=== PATIENT | female | born 1995 | race Two or more races ===

== ENCOUNTER 2019-07-28 11:04 | Emergency (ER) | payer BC ==
[~2019-07-28] VITALS: Ht 160 cm; Wt 59.0 kg
[2019-07-28] MEDS ORDERED: NKM (11:24)
[2019-07-28 11:28] VITALS: BP 107/67
--- NOTE | 2019-07-28 11:30 | NUR ---
ED Nurse Note: A/OX4. PT REPORTS OF HAVING TOOTHACHE SINCE YESTERDAY AND PAIN REMAINS AFTER TAKING IBUPROFEN AND PENDING APPT WITH DENTIST. NAD NOTED.
[2019-07-28] MEDS ORDERED: Ketorolac 30mg Inj IM ONE (12:15)
--- NOTE | 2019-07-28 12:17 | Emergency Room Report ---
History of Present Illness General Chief Complaint: Toothache Source: Patient Present Illness HPI 23-year-old female with no symptom past medical history here complaining of toothache that started 2 days ago. Reports that she is not from [place] and a month ago she was in the process of extraction of her wisdom teeth however had to come to [place] due to dizziness. Rating the pain 10 out of 10 reporting has been taking ibuprofen with minimal relief. Denies fall or injury. No signs of infection noted. Denies fever and chills, and other associated symptoms. Denies ear pain, tingling or numbness, headache and dizziness Allergies: Uncoded Allergies: NAPROXYN (Allergy, Unknown, 07/28/19) Patient History Past Medical History: see triage record Past Surgical History: unable to obtain Pertinent Family History: none Last Menstrual Period: 07/19/2019 Now: No Immunizations: UTD Reviewed Nursing Documentation: PMH: Agreed; PSxH: Agreed Nursing Documentation-PMH Past Medical History: No Stated History Review of Systems All Other Systems: negative except mentioned in HPI Physical Exam Vital Signs Date Time Temp Pulse Resp B/P (MAP) Pulse Ox O2 Delivery O2 Flow Rate FiO2 07/28/19 11:20 97.7 74 16 107/67 (80) 99 Room Air Sp02 EP Interpretation: reviewed, normal General Appearance: no apparent distress, alert, GCS 15, non-toxic Head: normocephalic, atraumatic Eyes: bilateral eye normal inspection, bilateral eye PERRL ENT: hearing grossly normal, normal pharynx, no angioedema, normal voice Neck: full range of motion, supple/symm/no masses Respiratory: chest non-tender, lungs clear, normal breath sounds, speaking full sentences Cardiovascular #1: regular rate, rhythm, no edema Gastrointestinal: normal bowel sounds, non tender, soft, non-distended, no guarding, no rebound Musculoskeletal: back normal, normal range of motion, gait/station normal, non- tender Neurologic: alert, motor strength/tone normal, oriented x3, sensory intact, responsive, speech normal Skin: no rash Lymphatic: no adenopathy Medical Decision Making PA Attestation All my diagnosis and treatment plans were reviewed ad discussed with my supervising physician Dr. Coles Diagnostic Impression: Primary Impression: Toothache ER Course 23-year-old female with no symptom past medical history here complaining of toothache that started 2 days ago. Reports that she is not from [place] and a month ago she was in the process of extraction of her wisdom teeth however had to come to [place] due to dizziness. Rating the pain 10 out of 10 reporting has been taking ibuprofen with minimal relief. Denies fall or injury. No signs of infection noted. Denies fever and chills, and other associated symptoms. Denies ear pain, tingling or numbness, headache and dizziness Ddx considered but are not limited to : Tooth infection, tooth ache, Ddx considered but are not limited to: facial bone fracture, facial contusion, tooth abscess Vital signs: are WNL, pt. is afebrile H&PE are most consistent with: Toothache ORDERS: Ibuprofen, Tylenol ED INTERVENTIONS: Toradol DISCHARGE: At this time pt. is stable for d/c to home. Will provide printed patient care instructions, and any necessary prescriptions. Care plan and follow up instructions have been discussed with the patient prior to discharge. , Patient to make an appointment with a dentist at this time cannot write for any narcotics as origin of toothache is not known antibiotics can be written as there is no signs of infection noted. Last Vital Signs Date Time Temp Pulse Resp B/P (MAP) Pulse Ox O2 Delivery O2 Flow Rate FiO2 07/28/19 11:20 97.7 74 16 107/67 (80) 99 Room Air Disposition: HOME, SELF-CARE Condition: Stable Scripts Lidocaine HCl 2% Viscous (Lidocaine HCl 2% Viscous) 100 Ml Solution 15 ML ORAL QID, #100 ML Prov: Lyndsey Nava 07/28/19 Acetaminophen* (TYLENOL EXTRA STRENGTH*) 500 Mg Tablet 1000 MG ORAL Q6H, #30 TAB Prov: Lyndsey Nava 07/28/19 Ibuprofen (Ibu) 800 Mg Tablet 800 MG PO TID, #30 TAB Prov: Lyndsey Nava 07/28/19 Patient Instructions: Dental Pain Additional Instructions: Follow-up with your dentist for extraction of your wisdom tooth, at this time he can take ibuprofen and Tylenol for symptom relief Lyndsey Nava Jul 28, 2019 12:17
[2019-07-28] MEDS ORDERED: LIDOCAINE VISC100 ML ORAL (12:19)
[2019-07-28] MEDS ORDERED: IBU800 MG PO (12:19)
[2019-07-28] MEDS ORDERED: ACETAMINOPHEN500 MG ORAL (12:19)
[2019-07-28 12:29] VITALS: BP 107/67
--- NOTE | 2019-07-28 12:30 | NUR ---
ED Nurse Note: Pt cleared by health care Provider for discharge. DC instructions/prescription was given and explained to pt and verbalized understanding of teachings. All medical deviecs such as ID band removed. Pt is AAO x4, ambulatory and left with all personal belongings.
== END 2019-07-28 12:31 | disposition home or self-care (01) ==
LOC: EMR 12:21
DX: K08.89 Other specified disorders of teeth and supporting structures (principal); Z88.6 Allergy status to analgesic agent
CPT/HCPCS: 96372; 99283; J1885